=== PATIENT | male | born 1945 | race Caucasian/White ===

== ENCOUNTER 2018-06-26 07:51 | Day surgery (SDC) | payer MEDICARE ==
[~2018-06-26] VITALS: Ht 165.1 cm; Wt 111.6 kg
[~2018-06-26 07:51] MED LIST: ACET325; ALBU90OI61; ALPR.5 PO; B Complex1 EAC2 PO; CLOB.05TC; ESOM20 PO; FINA5 PO; FISH1000 PO; FURO20 PO; HYDACE5 PO; Hair, Skin & N1 EACH PO; IPRAOI; IPRAOI INH; LEVO750 PO; LOVA40 PO; Loperamide2 MG PO; METO25ER PO; OXYC5 PO; Prednisone20 MG PO; RANI150 PO; SACC250C; TAMS.4ER; TAMS.4ER PO; TRAM50 PO; [UNRECOGNIZED DRUG - REMARK]
== END 2018-06-26 10:11 | disposition home or self-care (01) ==
LOC: ORSCSDS 07:51
PROVIDERS: Student in an Organized Health Care Education/Training Program
PROC: 0DB68ZX Excision of Stomach, Via Natural or Artificial Opening Endoscopic, Diagnostic (ICD-10-PCS; principal; 2018-06-26 09:00)
PROC: 0DB48ZX Excision of Esophagogastric Junction, Via Natural or Artificial Opening Endoscopic, Diagnostic (ICD-10-PCS; principal; 2018-06-26 09:00)
DX: K21.9 Gastro-esophageal reflux disease without esophagitis (principal); I10 Essential (primary) hypertension; G47.33 Obstructive sleep apnea (adult) (pediatric); E78.5 Hyperlipidemia, unspecified; R73.03 Prediabetes; J45.909 Unspecified asthma, uncomplicated; K44.9 Diaphragmatic hernia without obstruction or gangrene; K29.70 Gastritis, unspecified, without bleeding; Z87.891 Personal history of nicotine dependence; E66.01 Morbid (severe) obesity due to excess calories; Z68.41 Body mass index [BMI] 40.0-44.9, adult; Z79.899 Other long term (current) drug therapy
CPT/HCPCS: 88305; 88342; J2250; J2704; J7120

== ENCOUNTER 2018-10-14 20:17 | Emergency (ER) | payer MEDICARE ==
[~2018-10-14] VITALS: Ht 170.2 cm; Wt 104.3 kg
[~2018-10-14 20:17] MED LIST changes: -RANI150 PO; +Zantac150 MG PO
[2018-10-14] MEDS ORDERED: IBUP600 PO (22:22)
[2018-10-14] MEDS ORDERED: CYCL10 PO (22:22)
[2018-10-14] MEDS ORDERED: LIDO700A20 TOP (22:22)
== END 2018-10-14 23:01 | disposition home or self-care (01) ==
LOC: ER 20:17
DX: G89.29 Other chronic pain (principal); M54.5 Low back pain; I10 Essential (primary) hypertension; E78.5 Hyperlipidemia, unspecified; Z79.899 Other long term (current) drug therapy; J44.9 Chronic obstructive pulmonary disease, unspecified; K21.9 Gastro-esophageal reflux disease without esophagitis; Z87.891 Personal history of nicotine dependence
CPT/HCPCS: 96372; 99283-25; J1100; J1885

== ENCOUNTER 2018-12-18 11:14 | Day surgery (SDC) | payer MEDICARE ==
[~2018-12-18] VITALS: Ht 165.1 cm; Wt 108.0 kg
[~2018-12-18 11:14] MED LIST changes: +CYCL10 PO; +IBUP600 PO; +LIDO700A20 TOP
[2018-12-18] MEDS ORDERED: LOSA50 PO (11:39)
[2018-12-18] MEDS ORDERED: Klor-Con 1010 MEQ PO (11:42)
[2018-12-18] MEDS ORDERED: BENZ100A PO (11:43)
[2018-12-18] MEDS ORDERED: Flonase 0.05% N16 GM (11:44)
[2018-12-18] MEDS ORDERED: ASTEPRO205.5 MCG/ INH (11:46)
[2018-12-18] MEDS ORDERED: OMEP20ER PO (11:54)
--- NOTE | 2018-12-18 13:10 | NUR ---
12/18/18 1310 Nicole Ahmadi PATIENT WHEN SITTING STATED HE FELT LIKE HIS PAIN MIGHT BE BETTER. WHEN PATIENT WAS READY TO AMBULATE TO THE CAR HE WAS HAVING GREAT DIFFICULTY DOING THIS AND STATED THE PAIN IS "STILL PRETTY BAD" IN HIS LOW BACK AND LEFT SIDE. WANTED TO WALK BUT THEN DUE TO HIS DIFFICULTY HE DECIDED HE NEEDED TRANSPORT CHAIR. HE WAS TAKEN OUT IN CHAIR TO THE CAR AND HE WAS ABLE TO TRANSFER WITH MINIMAL ASSISTANCE BUT IT DID APPEAR TO BE VERY UNCOMFORTABLE. PATIENT WAS ADVISED TO GO HOME AND TAKE OTC PAIN MEDS CAIT AND HE VERBALIZED UNDERSTANDING
== END 2018-12-18 13:06 | disposition home or self-care (01) ==
LOC: ORSCSDS 11:14
PROVIDERS: Orthopaedic Surgery
PROC: 3E0R33Z Introduction of Anti-inflammatory into Spinal Canal, Percutaneous Approach (ICD-10-PCS; principal; 2018-12-18 15:00)
DX: M54.16 Radiculopathy, lumbar region (principal); M48.00 Spinal stenosis, site unspecified; M54.5 Low back pain; R73.03 Prediabetes; I10 Essential (primary) hypertension; E78.5 Hyperlipidemia, unspecified; G47.33 Obstructive sleep apnea (adult) (pediatric); J45.909 Unspecified asthma, uncomplicated; E66.01 Morbid (severe) obesity due to excess calories; Z68.38 Body mass index [BMI] 38.0-38.9, adult; Z87.891 Personal history of nicotine dependence; Z79.899 Other long term (current) drug therapy
CPT/HCPCS: J1040

== ENCOUNTER → 2020-09-12 | Outpatient (CLI) | payer MEDICARE ==
[~2020-09-12] MED LIST changes: -ACET325; +ACET325 PO; -ALBU90OI61; +ALBU90OI61 INH; +ASPI81CH PO; +ASTEPRO205.5 MCG/ INH; +BENZ100A PO; +Flonase 0.05% N16 GM; -IPRAOI; +IPRATROPIUM INH; +Klor-Con 1010 MEQ PO; +LOSA50 PO; +MULVITA PO; +Norco 5-325 Ta1 EACH PO; +OMEP20ER PO; +ROSU5 PO; +SPIRIVA RESPIMAT4 G3 INH; +ZANAFLEX4 M3 PO
[2020-09-12 10:44] LABS: BASOPHILS ABSOLUTE AUTO 0.05 K/mm3 (0.00-0.23); BASOPHILS PERCENT AUTO 1 % (0-2); EOSINOPHILS ABSOLUTE AUTO 0.23 K/mm3 (0.00-0.68); EOSINOPHILS PERCENT AUTO 3 % (0-6); Hematocrit 42.9 % (37.0-53.0); Hemoglobin 14.1 g/dL (13.5-17.5); IMMATURE GRAN ABSOLUTE AUTO 0.03 K/mm3 (0.00-0.10); IMMATURE GRAN PERCENT AUTO 0 % (0-1); LYMPHOCYTES ABSOLUTE AUTO 1.81 K/mm3 (0.84-5.20); LYMPHOCYTES PERCENT AUTO 22 % (21-46); MONOCYTES ABSOLUTE AUTO 0.54 K/mm3 (0.16-1.47); MONOCYTES PERCENT AUTO 7 % (4-13); Mean Corpuscular HGB 29.4 pg (26.0-34.0); Mean Corpuscular HGB Conc 32.9 g/dL (31.5-36.5); Mean Corpuscular Volume 90 fL (80-100); Mean Platelet Volume 10.3 fL (9.1-12.4); NEUTROPHILS ABSOLUTE AUTO 5.53 K/mm3 (1.96-9.15); NEUTROPHILS PERCENT AUTO 68 % (41-73); Platelet Count 220 K/mm3 (150-400); RDW Coefficient Variation 13.7 % (11.7-14.2); RDW Standard Deviation 45.1 fL (35.1-46.3); Red Blood Cell Count 4.79 M/mm3 (4.30-5.90); White Blood Cell Count 8.19 K/mm3 (4.00-11.30)
[2020-09-12 11:01] LABS: Alanine Aminotransfer (ALT/SGP 21 U/L (12-78); Albumin, Blood 4.2 g/dL (3.4-5.0); Alk Phos 68 U/L (40-126); Anion Gap 10 mmol/L (6-16); Aspartate Aminotrans (AST/SGOT 13 U/L (12-37); Bilirubin, Total 0.5 mg/dL (0.1-1.0); Blood Urea Nitrogen 23 mg/dL (8-24); Bun/Creatinine Ratio 21.9 (12.0-20.0); CO2, Blood 29 mmol/L (21-32); Calcium, Blood 9.2 mg/dL (8.5-10.1); Chloride, Blood 101 mmol/L (98-108); Creatinine, Blood 1.05 mg/dL (0.60-1.20); Globulin, Blood 4.3 g/dL (2.2-4.0); Glomerular Filtration Rate >60 (60-); Glucose, Blood 110 mg/dL (70-99); Sodium, Blood 140 mmol/L (136-145); Thyroid Stimulating Hormone 1.995 uIU/mL (0.360-4.800); Total Protein, Blood 8.5 g/dL (6.4-8.2)
== END ==
LOC: LAB SHORT 10:35
PROVIDERS: Physician Assistant
DX: I25.10 Atherosclerotic heart disease of native coronary artery without angina pectoris (principal); R53.83 Other fatigue
CPT/HCPCS: 80053; 84443; 85025

== ENCOUNTER → 2021-06-15 | Outpatient (CLI) | payer MEDICARE | END | disposition home or self-care (01) | LOC: LAB SHORT 14:30 → LAB 14:30 | DX: R21 Rash and other nonspecific skin eruption (principal) | CPT/HCPCS: 87070; 87075; 87205 ==

== ENCOUNTER 2023-09-13 23:38 | Emergency (ER) | payer OTHER ==
[~2023-09-13] VITALS: Ht 165.1 cm; Wt 95.2 kg
[~2023-09-13 23:38] MED LIST changes: +AMLODIPINE BESY10 MG PO; +Crestor40 MG PO; +FUROSEMIDE20 MG PO; +LEVOCETIRIZINE D5 MG PO; +NEURONTIN300 MG PO; +OXAYDO5 M1 PO; -ROSU5 PO; +TORSE20 PO
[2023-09-13] MEDS ORDERED: Phentermine HCl15 MG PO (23:50)
[2023-09-13] MEDS ORDERED: METOPROLOL SUCC25 MG PO (23:50)
[2023-09-14 00:40] LABS: BASOPHILS ABSOLUTE AUTO 0.04 K/mm3 (0.00-0.23); BASOPHILS PERCENT AUTO 0 % (0-2); EOSINOPHILS ABSOLUTE AUTO 0.23 K/mm3 (0.00-0.68); EOSINOPHILS PERCENT AUTO 2 % (0-6); Hematocrit 38.7 % (37.0-53.0); Hemoglobin 12.8 g/dL (13.5-17.5); IMMATURE GRAN ABSOLUTE AUTO 0.04 K/mm3 (0.00-0.10); IMMATURE GRAN PERCENT AUTO 0 % (0-1); LYMPHOCYTES PERCENT AUTO 24 % (21-46); MONOCYTES PERCENT AUTO 9 % (4-13); Mean Corpuscular HGB 28.6 pg (26.0-34.0); Mean Corpuscular HGB Conc 33.1 g/dL (31.5-36.5); Mean Corpuscular Volume 87 fL (80-100); Mean Platelet Volume 10.1 fL (9.1-12.4); NEUTROPHILS ABSOLUTE AUTO 6.62 K/mm3 (1.96-9.15); NEUTROPHILS PERCENT AUTO 65 % (41-73); Platelet Count 198 K/mm3 (150-400); RDW Coefficient Variation 15.8 % (11.7-14.2); RDW Standard Deviation 49.5 fL (35.1-46.3); Red Blood Cell Count 4.47 M/mm3 (4.30-5.90); White Blood Cell Count 10.23 K/mm3 (4.00-11.30)
[2023-09-14 00:59] LABS: Albumin, Blood 3.7 g/dL (3.4-5.0); Bilirubin, Total 0.4 mg/dL (0.1-1.0); Bun/Creatinine Ratio 24.3 (12.0-20.0); Calcium, Blood 8.4 mg/dL (8.5-10.1); Creatinine, Blood 1.03 mg/dL (0.60-1.20); Globulin, Blood 3.6 g/dL (2.2-4.0); Potassium, Blood 3.9 mmol/L (3.5-5.5); Total Protein, Blood 7.3 g/dL (6.4-8.2)
[2023-09-14] MEDS ORDERED: Mag Hydrox/AL Hydrox/Simeth 30 ML UDC PO ONE (03:00)
[2023-09-14] MEDS ORDERED: Lidocaine 2% Viscous Soln 15 ML UDC PO ONE (03:00)
[2023-09-14 04:30] VITALS: BP 126/63
== END 2023-09-14 04:40 | disposition home or self-care (01) ==
LOC: ER 23:38
PROVIDERS: Emergency Medicine
DX: K21.9 Gastro-esophageal reflux disease without esophagitis (principal); Z68.34 Body mass index [BMI] 34.0-34.9, adult; E86.0 Dehydration; Z79.899 Other long term (current) drug therapy; Z79.82 Long term (current) use of aspirin; G47.33 Obstructive sleep apnea (adult) (pediatric); I10 Essential (primary) hypertension; E78.5 Hyperlipidemia, unspecified; J44.9 Chronic obstructive pulmonary disease, unspecified; Z87.891 Personal history of nicotine dependence
CPT/HCPCS: 71046; 80053; 83605; 83690; 84484; 85025; 85379; 93005; 93010; 99284-25; A9270

== ENCOUNTER 2024-02-18 12:53 | Emergency (ER) | payer OTHER ==
[~2024-02-18] VITALS: Ht 165.1 cm; Wt 104.8 kg
[~2024-02-18 12:53] MED LIST changes: +METOPROLOL SUCC25 MG PO; +Phentermine HCl15 MG PO
[2024-02-18 13:29] VITALS: BP 118/48
== END 2024-02-18 16:02 | disposition home or self-care (01) ==
LOC: ER 12:53
DX: K40.20 Bilateral inguinal hernia, without obstruction or gangrene, not specified as recurrent (principal); N50.82 Scrotal pain; I10 Essential (primary) hypertension; E78.5 Hyperlipidemia, unspecified; J44.9 Chronic obstructive pulmonary disease, unspecified; K21.9 Gastro-esophageal reflux disease without esophagitis; G47.33 Obstructive sleep apnea (adult) (pediatric); Z87.891 Personal history of nicotine dependence; Z79.51 Long term (current) use of inhaled steroids; Z79.899 Other long term (current) drug therapy
CPT/HCPCS: 76857; 76870; 99283-25

== ENCOUNTER 2024-04-01 07:46 | Observation (INO) | payer OTHER ==
[~2024-04-01] VITALS: Ht 165.1 cm; Wt 108.0 kg
[2024-04-01] VITALS (14 sets, daily range): BP systolic 118–170; BP diastolic 49–90
[~2024-04-01 07:46] MED LIST changes: +AMLO10 PO; +ATROVENT HFA12.9 GM INH; +CeFAZolin Sodium 2,000 MG in NS 100 ML IV SCH; +Lactated Ringer's 1,000 ML IV SCH; +SPIR25 PO
[2024-04-01] MEDS ORDERED: Bupivacaine 0.5% HCl 5 MG/ML 30MLVIAL ONE (08:37)
--- NOTE | 2024-04-01 08:47 | NUR ---
Ambulatory in Day Surgery WITH PERSONAL CANE. GAIT UNSTEADY. USES WC FOR LONGER DISTANCES. History, Chart, Medications and Allergies reviewed before start of procedure. Lungs clear T/O to Auscultation. Patient confirms NPO status and agrees with scheduled surgery. Pre-Op teaching done. Pt verbalizes understanding. Patient States Post-Procedure ride home has been arranged. PT BELONGINGS AND PERSONAL CANE PLACED UNDERNEATH GURNEY FOR SAFEKEEPING. PT GLASSES TAKEN TO PACU FOR SAFEKEEPING.
--- NOTE | 2024-04-01 08:54 | NUR ---
PT BOTTOM DENTURES TAKEN TO PACU FOR SAFEKEEPING. PT STATES UPPER DENTURES ARE IN VERY TIGHT. ANESTHESIA NOTIFIED.
[2024-04-01] MEDS ORDERED: FentaNYL Citrate 50 MCG/ML 2 ML Injection ONE (08:56)
[2024-04-01] MEDS ORDERED: Etomidate 2MG / ML 10ML Vial ONE (09:00)
[2024-04-01] MEDS ORDERED: Dexamethasone Sod Phos 10 MG/ML 1ML VIAL ONE (09:01)
[2024-04-01] MEDS ORDERED: Ondansetron HCl 2 MG / ML 2ML Vial ONE (09:01)
[2024-04-01] MEDS ORDERED: Phenylephrine HCl 100 MCG/ML-NS 10MLSYR (1MG/10ML) ONE (10:42)
[2024-04-01] MEDS ORDERED: Sugammadex Sodium 200 MG/2ML SDV (100 MG/ML) ONE (11:06)
[2024-04-01] MEDS ORDERED: HYDROcodone 5-APAP 325 TAB PO PRN (11:40)
--- NOTE | 2024-04-01 13:21 | NUR ---
"Spiritual Care | DS Rapid Response Pt. is being attended to by the RR Team when I go find the family in the waiting area. Sit with Pts. spouse who displays evidence of being visibly shaken. Facilitate life review and listen with empathy and a calming presence. Pts. daughter who is also a staff member at this hospital arrives and sits with the Spouse. Pastoral care and support are given, before this visiting housekeeper departed I had the nurse customer success manager update the family on the care plan for the Pt. Spouse verbalized gratitude for the spiritual care visit."
--- NOTE | 2024-04-01 13:25 | NUR ---
1200 RECEIVED REPORT. PT APPEARS IN NO DISTRESS. VSS. ORIENTED TO SELF AND BUT DOESN NOT KNOW WHERE HE IS OR WHAT HAS BEEN DONE TO HIM. DOES NOT KNOW DATE OR WHO PRESIDENT IS. ABLE TO FOLLOW DIRECTIOS BUT IS REPETITIVE IN QUESTIONS ABOUT HIS WHERE ABOUTS. HE IS UNABLE TO TELL ME IF HE HAS PAIN. HE IS UNABLE TO CHOSE A DRINK FROM A LIST STATING "I DON'T KNOW" 1210 M. BUTT MOBILE HEAVY EQUIPMENT MECHANIC AT BS ASSESSING PT. [address] W/NSR. PT PUT ON VIA NC. AT BS. EKG ORDERED 1215 PT CONTINUES TO ASK REPETITVE QUESTIONS AND IS NOW SOB W/LABORED BREATHING. LUNGS CTA X 4 BUT DIM THROUGHOUT RIGHT INGUINAL DRESSING CDI. LEFT INGUINAL DRESSING W/ VERY SCANT SERROSANGUANOUS DRAINAGE COMING FROM MEDIAL PART OF DRESSING. PT CONTINUES TO HAVE INCREASED SOB AND LABORED BREATHING. RIGHT ARM W/INCREASING TREMOR. PT'S STATES THAT HE SOMETIMES HAS THIS. PT TALKING ONE SECOND THAN SLUMPED OVER. STAFF ALERTED TO PT'S DECLINE. PT'S HOB DOWN AND STERNAL RUB ADMINSTERED W/ IMMEDIATE EYE OPENING. PT MUTTERING. INSTRUCTIONAL DESIGN TECHNOLOGIST CALLED 1220 INSTRUCTIONAL DESIGN TECHNOLOGIST AT BS. DR WALL AT BS. EKG DONE. PT TO BE ADMITTED TO DR. HOPSON IN ROOM PCU 18. PT CONTINUES TO HAVE SOB AND TREMORING R SIDE GREATER THAN LEFT 1245 PT CONT ON MONITOR BUT IS MORE CALM NOW. CONTIUES TO HAVE OCCASIONAL SLIGHT TREMOR IN RIGHT ARM. SOB MUCH IMPROVED. 1300 PT TRANSFERRED ON VIA DANIEL TO PCU 18 SEE INSTRUCTIONAL DESIGN TECHNOLOGIST REPORT AND MD DICTATION
[2024-04-01] MEDS ORDERED: FLU VACC TS2024-25(6MOS UP)/PF 45 MCG/0.5 ML SYRINGE IM SCH (13:55)
--- NOTE | 2024-04-01 14:29 | NUR ---
pt went for head CT and chest xray
[2024-04-01 15:21] LABS: Base Excess Venous -0.7 mmol/L; Bicarbonate Venous 23.7 mmol/L (24.0-30.0); PCO2 Venous 37.3 mmHg (38-42); pH Blood Venous 7.42 (7.34-7.37)
[2024-04-01 15:24] LABS: BASOPHILS ABSOLUTE AUTO 0.02 K/mm3 (0.00-0.23); BASOPHILS PERCENT AUTO 0 % (0-2); EOSINOPHILS PERCENT AUTO 0 % (0-6); Hematocrit 34.5 % (37.0-53.0); Hemoglobin 11.6 g/dL (13.5-17.5); IMMATURE GRAN ABSOLUTE AUTO 0.04 K/mm3 (0.00-0.10); IMMATURE GRAN PERCENT AUTO 0 % (0-1); LYMPHOCYTES ABSOLUTE AUTO 0.53 K/mm3 (0.84-5.20); LYMPHOCYTES PERCENT AUTO 4 % (21-46); MONOCYTES ABSOLUTE AUTO 0.48 K/mm3 (0.16-1.47); MONOCYTES PERCENT AUTO 4 % (4-13); Mean Corpuscular HGB 29.1 pg (26.0-34.0); Mean Corpuscular HGB Conc 33.6 g/dL (31.5-36.5); Mean Corpuscular Volume 87 fL (80-100); Mean Platelet Volume 10.1 fL (9.1-12.4); NEUTROPHILS ABSOLUTE AUTO 12.16 K/mm3 (1.96-9.15); NEUTROPHILS PERCENT AUTO 92 % (41-73); Platelet Count 172 K/mm3 (150-400); RDW Coefficient Variation 14.6 % (11.7-14.2); RDW Standard Deviation 46.4 fL (35.1-46.3); Red Blood Cell Count 3.99 M/mm3 (4.30-5.90); White Blood Cell Count 13.23 K/mm3 (4.00-11.30)
[2024-04-01 15:49] LABS: Prothrombin Time Results 10.7 Sec (9.7-11.5)
[2024-04-01 16:06] LABS: Albumin, Blood 3.3 g/dL (3.4-5.0); Bilirubin, Total 0.4 mg/dL (0.1-1.0); Bun/Creatinine Ratio 17.4 (12.0-20.0); Calcium, Blood 8.3 mg/dL (8.5-10.1); Creatinine, Blood 1.09 mg/dL (0.60-1.20); Globulin, Blood 3.4 g/dL (2.2-4.0); Potassium, Blood 4.2 mmol/L (3.5-5.5); Total Protein, Blood 6.7 g/dL (6.4-8.2)
[2024-04-01] MEDS ORDERED: ATROVENT HFA12.9 GM INH (16:09)
[2024-04-01] MEDS ORDERED: MIRALAX17 GM PO (16:10)
[2024-04-01] MEDS ORDERED: TIOT18 INH (16:11)
[2024-04-01] MEDS ORDERED: TIZA4 PO (16:12)
[2024-04-01] MEDS ORDERED: SPIR25 PO (16:17)
[2024-04-01] MEDS ORDERED: Insulin Regular 100 UNIT/ML 10ML Vial SC SCH (16:30)
[2024-04-01] MEDS ORDERED: Polyethylene Glycol 3350 17 gm PO PRN (16:40)
[2024-04-01] MEDS ORDERED: Aspirin 325 MG Tab PO ONE (17:00)
[2024-04-01] MEDS ORDERED: Tiotropium Bromide 2.5 MCG/ACT MIST INHAL (10 ACT/4 GM) INH SCH (17:05)
--- NOTE | 2024-04-01 18:25 | NUR ---
Family Support. Met with Spouse and daughter in the hallway. With theraputic listening and a calming presence lent support to the family. Family shares about the high anxiety of the the Pt. Our visit opened the door for follow up with the Pt. in the morning. Family verbalized greatitude for the spiritual care support.
--- NOTE | 2024-04-01 18:33 | NUR ---
The pt this afternoon around 4 pm was alert, oriented, calm, and mentating well without any anxiety nor confusion nor forgetfulness. After 5:30 pm he c/o ongoing pain, worsened when he walked into the bathroom for the second time to void. Stated it was 8/10. We encouraged him to get into the recliner for comfort and for ease of movement, eddie since he is adamant about ambulating to bathroom to sit on toilet to void. He was tolerating this activity fairly well before. However, just after 5:30 pm while sitting on the side of the bed, just after using the toilet, he began to hyperventilate, stating his pain was almost 9/10 (He had been given [place] but it had not yet given him relief). He was clearly anxious. He was alert, oriented, v/s were stable, but he continued to hyperventilate despite staff reassurance and staying beside him for several minutes, and he began to also shake his arms, but this was also intermittent as it would stop momentarily when he would have a purposeful movement to hold the walker, scratch his face. He was encouraged to slow down his breathing to help decrease his pain as well, and he verbalized assent, but did not seem able to shake his anxiety. He was able to follow directions and after about 10-15 minutes was able to transfer using the walker to the bedside recliner. NSR throughout the entire time by telemetry, and spo2 remained greater than 92%. At present he is cheerful, eating dinner, smiling, making jokes and his and daughter are at the bedside. His and daughter were present during the episode and state that they have seen the pt have these "anxiety/panic" attacks before, and their experience is that the pt has them when he is in pain because they state that his pain tolerance is "zero".
[2024-04-01] MEDS ORDERED: Rosuvastatin Calcium 10 MG Tab PO SCH (21:00)
[2024-04-01] MEDS ORDERED: Gabapentin 300 MG Cap PO SCH (21:00)
[2024-04-01] MEDS ORDERED: Acetaminophen 500 MG Tab PO PRN (21:20)
[2024-04-01] MEDS ORDERED: Ketorolac Tromethamine 15mg Vial IV PRN (21:35)
[2024-04-01] MEDS ORDERED: Omeprazole 20 MG CapCR PO SCH (22:25)
[2024-04-02 00:11] VITALS: BP 113/58
[2024-04-02 04:00] LABS: BASOPHILS ABSOLUTE AUTO 0.01 K/mm3 (0.00-0.23); BASOPHILS PERCENT AUTO 0 % (0-2); EOSINOPHILS PERCENT AUTO 0 % (0-6); Hemoglobin 10.9 g/dL (13.5-17.5); IMMATURE GRAN ABSOLUTE AUTO 0.12 K/mm3 (0.00-0.10); IMMATURE GRAN PERCENT AUTO 1 % (0-1); LYMPHOCYTES ABSOLUTE AUTO 1.25 K/mm3 (0.84-5.20); LYMPHOCYTES PERCENT AUTO 6 % (21-46); MONOCYTES ABSOLUTE AUTO 1.65 K/mm3 (0.16-1.47); MONOCYTES PERCENT AUTO 8 % (4-13); Mean Corpuscular HGB 28.6 pg (26.0-34.0); Mean Corpuscular Volume 87 fL (80-100); Mean Platelet Volume 10.4 fL (9.1-12.4); NEUTROPHILS ABSOLUTE AUTO 16.83 K/mm3 (1.96-9.15); NEUTROPHILS PERCENT AUTO 85 % (41-73); Platelet Count 208 K/mm3 (150-400); RDW Coefficient Variation 14.8 % (11.7-14.2); RDW Standard Deviation 47.1 fL (35.1-46.3); Red Blood Cell Count 3.81 M/mm3 (4.30-5.90); White Blood Cell Count 19.86 K/mm3 (4.00-11.30)
[2024-04-02 04:19] VITALS: BP 100/49
[2024-04-02 04:55] LABS: Anion Gap 11 mmol/L (3-11); Blood Urea Nitrogen 29 mg/dL (8-24); Bun/Creatinine Ratio 22.8 (12.0-20.0); CHOL/HDL RATIO 2.8; CO2, Blood 23 mmol/L (21-32); Calcium, Blood 8.5 mg/dL (8.5-10.1); Chloride, Blood 108 mmol/L (98-108); Cholesterol 142 mg/dL (50-200); Creatinine, Blood 1.27 mg/dL (0.60-1.20); Glomerular Filtration Rate 57 (60-); Glucose, Blood 119 mg/dL (70-99); HDL Cholesterol 50 mg/dL (>39); LDL/HDL RATIO 1.3; Low Density Lipoprotein Chol 64 mg/dL (0-110); Potassium, Blood 4.4 mmol/L (3.5-5.5); Sodium, Blood 138 mmol/L (136-145); Triglycerides 140 mg/dL (30-160); Very Low Density Lipoprot Chol 28 mg/dL (6-32)
[2024-04-02] MEDS ORDERED: Omeprazole 20 MG CapCR PO SCH (06:00)
[2024-04-02 07:35] VITALS: BP 114/59
--- NOTE | 2024-04-02 07:55 | NUR ---
SHIFT SUMMARY: PT IS A&OX3-4, FORGETFUL AT TIMES, BUT COOPERATIVE WITH CARES. VSS ON RA, CPAP ON WHILE ASLEEP. C/O PAIN IN HIS BILAT GROIN INCISION SITES, MEDICATED PER EMAR. DRESSINGS WITH SMALL AMOUNTS OF SANGUINEOUS DRAINAGE. GROIN AREAS ARE ECCHYMOTIC, SOFT AND TENDER TO PALPATE. TOLERATING A HEART HEALTHY DIET. X1 ASSIST TO BR WITH FWW AND GB. NO BM THIS SHIFT, PASSING FLATUS. BED IN LOWEST POSITION, CALL LIGHT WITHIN REACH. BED ALARM SET FOR PT'S SAFETY.
[2024-04-02] MEDS ORDERED: Losartan Potassium 50 MG Tab PO SCH (09:00)
[2024-04-02] MEDS ORDERED: Tamsulosin HCl 0.4 MG Cap PO SCH (09:00)
[2024-04-02] MEDS ORDERED: Spironolactone 25 MG Tab PO SCH (09:00)
[2024-04-02] MEDS ORDERED: Metoprolol Succinate 25 MG TABCR PO SCH (09:00)
[2024-04-02] MEDS ORDERED: Potassium Chloride 10 Meq Tablet SA PO SCH (09:00)
[2024-04-02] MEDS ORDERED: Torsemide 20 MG TAB PO SCH (09:00)
[2024-04-02] MEDS ORDERED: Finasteride 5 MG Tab PO SCH (09:00)
[2024-04-02] MEDS ORDERED: AmLODIPine Besylate 5 MG Tab PO SCH (09:00)
[2024-04-02] MEDS ORDERED: Fluticasone 0.05% Nasal Spray SCH (09:00)
[2024-04-02 11:33] VITALS: BP 105/58
--- NOTE | 2024-04-02 13:28 | NUR ---
Dr. Basilio is here rounding on the pt at this time.
--- NOTE | 2024-04-02 13:51 | NUR ---
Tolerating walking to the bathroom to void well; some shortness of breath with activity. V/s are stable.
--- NOTE | 2024-04-02 17:36 | NUR ---
1600 Discharge instructions reviewed with the patient and his , Vesta. Questions answered. Rx given for Zullinger; pt to fill it at [facility]. Taken out in wheelchair with accompanying him.
--- NOTE | 2024-04-02 18:14 | NUR ---
Pt. is awake in bed when he welcomed my visit. Spouse is at bedside. Pt. is pleasant, but this dimpling machine operator had been notified by the staff that he had been struggling with anxiety. Spent some significant time facilitating a life review and establishing rapport. Prayed for the Pt. and the family both verbalized gratitude for the spiritual care visit. Pt. displayed evidence of less anxiety.
[2024-04-02] MEDS ORDERED: Polyethylene Glycol 3350 17 gm PO SCH (21:00)
[2024-04-03] MEDS ORDERED: Aspirin 81 MG Chew PO SCH (09:00)
== END 2024-04-02 16:29 | disposition home or self-care (01) ==
LOC: ORSCMMR 07:46 → ORD 09:00 → ORSCMMR 09:00 → PCU 13:24
PROVIDERS: Surgery; ADMIT Family Medicine
PROC: 0YUA0JZ Supplement Bilateral Inguinal Region with Synthetic Substitute, Open Approach (ICD-10-PCS; principal; 2024-04-01 09:00)
DX: K40.00 Bilateral inguinal hernia, with obstruction, without gangrene, not specified as recurrent (principal); I25.10 Atherosclerotic heart disease of native coronary artery without angina pectoris; E11.9 Type 2 diabetes mellitus without complications; I10 Essential (primary) hypertension; G47.33 Obstructive sleep apnea (adult) (pediatric); J44.9 Chronic obstructive pulmonary disease, unspecified; E78.5 Hyperlipidemia, unspecified; K21.9 Gastro-esophageal reflux disease without esophagitis; N40.0 Benign prostatic hyperplasia without lower urinary tract symptoms; R53.1 Weakness; D64.9 Anemia, unspecified; E66.9 Obesity, unspecified; Z68.38 Body mass index [BMI] 38.0-38.9, adult; Z87.891 Personal history of nicotine dependence; Z79.82 Long term (current) use of aspirin; Z79.899 Other long term (current) drug therapy; Z88.5 Allergy status to narcotic agent; Z88.8 Allergy status to other drugs, medicaments and biological substances; Z59.89 Other problems related to housing and economic circumstances
CPT/HCPCS: 36415; 70450; 70496; 70498; 70551; 71045; 80048; 80053; 80061; 82803; 82947; 83880; 85025; 85610; 85730; 93005; 93010; 93306; 94640; 94664; 94762; 96374; 97161; 97530; A9270; C1781; G0378; J0690; J1100; J1885; J2371; J2405; J3010; J7120; Q9967

== ENCOUNTER 2024-06-14 10:33 | Emergency (ER) | payer OTHER ==
[~2024-06-14] VITALS: Ht 165.1 cm; Wt 104.3 kg
[~2024-06-14 10:33] MED LIST changes: -CeFAZolin Sodium 2,000 MG in NS 100 ML IV SCH; -Lactated Ringer's 1,000 ML IV SCH; +MIRALAX17 GM PO; +TIOT18 INH; +TIZA4 PO
[2024-06-14 12:48] LABS: Source, Urine Clean Catch
[2024-06-14 12:54] LABS: BASOPHILS ABSOLUTE AUTO 0.04 K/mm3 (0.00-0.23); BASOPHILS PERCENT AUTO 0 % (0-2); EOSINOPHILS ABSOLUTE AUTO 0.07 K/mm3 (0.00-0.68); EOSINOPHILS PERCENT AUTO 1 % (0-6); Hematocrit 32.2 % (37.0-53.0); Hemoglobin 10.2 g/dL (13.5-17.5); IMMATURE GRAN ABSOLUTE AUTO 0.04 K/mm3 (0.00-0.10); IMMATURE GRAN PERCENT AUTO 0 % (0-1); LYMPHOCYTES ABSOLUTE AUTO 1.04 K/mm3 (0.84-5.20); LYMPHOCYTES PERCENT AUTO 7 % (21-46); MONOCYTES ABSOLUTE AUTO 1.08 K/mm3 (0.16-1.47); MONOCYTES PERCENT AUTO 8 % (4-13); Mean Corpuscular HGB 26.2 pg (26.0-34.0); Mean Corpuscular HGB Conc 31.7 g/dL (31.5-36.5); Mean Corpuscular Volume 83 fL (80-100); Mean Platelet Volume 10.4 fL (9.1-12.4); NEUTROPHILS PERCENT AUTO 84 % (41-73); Platelet Count 251 K/mm3 (150-400); RDW Standard Deviation 45.1 fL (35.1-46.3); Red Blood Cell Count 3.89 M/mm3 (4.30-5.90); White Blood Cell Count 14.37 K/mm3 (4.00-11.30)
[2024-06-14 12:55] LABS: Appearance, Urine Clear (Clear); Bilirubin, Urine Neg (Neg); Blood, Urine Neg (Neg); Color, Urine Yellow (P-Yellow); Glucose Qualitative, Urine Neg (Neg); Ketones, Urine Neg (Neg); Leukocyte Esterase, Urine Neg (Neg); Nitrite, Urine Neg (Neg); Protein, Urine Neg (Neg); Specific Gravity, Urine 1.015 (1.003-1.022); Urobilinogen, Urine NORM (Normal)
[2024-06-14 13:10] LABS: Albumin, Blood 4.1 g/dL (3.4-5.0); Albumin/Globulin Ratio 1.2 (0.8-1.8); Bilirubin, Total 0.8 mg/dL (0.1-1.0); Bun/Creatinine Ratio 24.8 (12.0-20.0); Calcium, Blood 8.5 mg/dL (8.5-10.1); Creatinine, Blood 1.21 mg/dL (0.60-1.20); Globulin, Blood 3.5 g/dL (2.2-4.0); Magnesium, Blood 2.3 mg/dL (1.6-2.4); Total Protein, Blood 7.6 g/dL (6.4-8.2)
[2024-06-14 14:35] VITALS: BP 116/55
[2024-06-14] MEDS ORDERED: MIRALAX17 GM PO (14:39)
[2024-06-14] MEDS ORDERED: Milk 150ML/Molasses 150ML (300ML Total) PR ONE (14:40)
[2024-06-14] MEDS ORDERED: Lactulose 20 GM/30 ML UDC PO ONE (14:40)
== END 2024-06-14 17:25 | disposition home or self-care (01) ==
LOC: ER 10:33
PROVIDERS: Emergency Medicine
DX: K59.00 Constipation, unspecified (principal); N40.1 Benign prostatic hyperplasia with lower urinary tract symptoms; R33.8 Other retention of urine; G47.33 Obstructive sleep apnea (adult) (pediatric); I10 Essential (primary) hypertension; E78.5 Hyperlipidemia, unspecified; J44.9 Chronic obstructive pulmonary disease, unspecified; K21.9 Gastro-esophageal reflux disease without esophagitis; Z87.891 Personal history of nicotine dependence; Z79.82 Long term (current) use of aspirin; Z79.899 Other long term (current) drug therapy
CPT/HCPCS: 51702; 74018; 74177; 80053; 81003; 83690; 83735; 85025; 99284-25; A9270; Q9967

== ENCOUNTER 2024-06-18 10:40 | Emergency (ER) | payer OTHER ==
[~2024-06-18] VITALS: Ht 165.1 cm; Wt 106.1 kg
[2024-06-18] MEDS ORDERED: Morphine Sulfate 4 MG/1 ML Injection IV ONE (12:25)
[2024-06-18] MEDS ORDERED: Lidocaine 2% Jelly Uro-Jet TOP ONE (12:25)
[2024-06-18 13:36] LABS: BASOPHILS ABSOLUTE AUTO 0.04 K/mm3 (0.00-0.23); BASOPHILS PERCENT AUTO 0 % (0-2); EOSINOPHILS ABSOLUTE AUTO 0.34 K/mm3 (0.00-0.68); EOSINOPHILS PERCENT AUTO 3 % (0-6); Hematocrit 30.4 % (37.0-53.0); Hemoglobin 9.5 g/dL (13.5-17.5); IMMATURE GRAN ABSOLUTE AUTO 0.03 K/mm3 (0.00-0.10); IMMATURE GRAN PERCENT AUTO 0 % (0-1); LYMPHOCYTES ABSOLUTE AUTO 1.51 K/mm3 (0.84-5.20); LYMPHOCYTES PERCENT AUTO 14 % (21-46); MONOCYTES ABSOLUTE AUTO 1.08 K/mm3 (0.16-1.47); MONOCYTES PERCENT AUTO 10 % (4-13); Mean Corpuscular HGB Conc 31.3 g/dL (31.5-36.5); Mean Corpuscular Volume 83 fL (80-100); Mean Platelet Volume 10.9 fL (9.1-12.4); NEUTROPHILS ABSOLUTE AUTO 7.56 K/mm3 (1.96-9.15); NEUTROPHILS PERCENT AUTO 72 % (41-73); Platelet Count 241 K/mm3 (150-400); RDW Coefficient Variation 15.1 % (11.7-14.2); RDW Standard Deviation 46.3 fL (35.1-46.3); Red Blood Cell Count 3.65 M/mm3 (4.30-5.90); White Blood Cell Count 10.56 K/mm3 (4.00-11.30)
[2024-06-18 13:48] LABS: Source, Urine Foley catheter
[2024-06-18 13:59] LABS: Albumin, Blood 3.6 g/dL (3.4-5.0); Bilirubin, Total 0.3 mg/dL (0.1-1.0); Bun/Creatinine Ratio 22.9 (12.0-20.0); Calcium, Blood 8.3 mg/dL (8.5-10.1); Creatinine, Blood 1.05 mg/dL (0.60-1.20); Globulin, Blood 3.6 g/dL (2.2-4.0); Magnesium, Blood 2.4 mg/dL (1.6-2.4); Potassium, Blood 4.2 mmol/L (3.5-5.5); Total Protein, Blood 7.2 g/dL (6.4-8.2)
[2024-06-18 14:10] LABS: Appearance, Urine Cloudy (Clear); Bilirubin, Urine Neg (Neg); Blood, Urine 5+ (Neg); Color, Urine Yellow (P-Yellow); Glucose Qualitative, Urine Neg (Neg); Ketones, Urine Neg (Neg); Leukocyte Esterase, Urine 2+ (Neg); Nitrite, Urine Neg (Neg); Protein, Urine 2+ (Neg); Urobilinogen, Urine NORM (Normal); pH, Urine 6.5 (5.0-8.0)
[2024-06-18 14:30] VITALS: BP 105/55
[2024-06-18 14:31] LABS: Bacteria Many /hpf; Red Blood Cells, Urine TNTC /hpf (0-2); Squamous Epithelial Cells Not Seen /hpf (Few)
[2024-06-18] MEDS ORDERED: Cephalexin Monohydrate 500 MG Cap PO ONE (14:40)
[2024-06-18] MEDS ORDERED: Pyridium100 MG PO (14:41)
[2024-06-18] MEDS ORDERED: CEPH500 PO (14:41)
== END 2024-06-18 15:10 | disposition home or self-care (01) ==
LOC: ER 10:40
PROVIDERS: Emergency Medicine
DX: T83.091A Other mechanical complication of indwelling urethral catheter, initial encounter (principal); N39.0 Urinary tract infection, site not specified; R31.9 Hematuria, unspecified; N32.89 Other specified disorders of bladder; G47.33 Obstructive sleep apnea (adult) (pediatric); E78.5 Hyperlipidemia, unspecified; J44.9 Chronic obstructive pulmonary disease, unspecified; K21.9 Gastro-esophageal reflux disease without esophagitis; Z87.891 Personal history of nicotine dependence; Z79.899 Other long term (current) drug therapy; Z79.51 Long term (current) use of inhaled steroids; Z79.82 Long term (current) use of aspirin
CPT/HCPCS: 74177; 80053; 81001; 83690; 83735; 85025; 96374-59; 99284-25; A9270; J2270; Q9967

== ENCOUNTER 2024-07-11 16:57 | Emergency (ER) | payer OTHER ==
[~2024-07-11] VITALS: Ht 165.1 cm; Wt 104.8 kg
[~2024-07-11 16:57] MED LIST changes: +CEPH500 PO; +Pyridium100 MG PO
[2024-07-11] MEDS ORDERED: Lidocaine 2% Viscous Soln 15 ML UDC PO ONE (17:10)
[2024-07-11] MEDS ORDERED: Mag Hydrox/AL Hydrox/Simeth 30 ML UDC PO ONE (17:10)
[2024-07-11] MEDS ORDERED: Diazepam 5 MG / ML 2ML SYR IV ONE (17:10)
[2024-07-11 17:27] LABS: BASOPHILS ABSOLUTE AUTO 0.05 K/mm3 (0.00-0.23); BASOPHILS PERCENT AUTO 1 % (0-2); EOSINOPHILS PERCENT AUTO 5 % (0-6); Hematocrit 25.3 % (37.0-53.0); Hemoglobin 7.7 g/dL (13.5-17.5); IMMATURE GRAN ABSOLUTE AUTO 0.02 K/mm3 (0.00-0.10); IMMATURE GRAN PERCENT AUTO 0 % (0-1); LYMPHOCYTES ABSOLUTE AUTO 1.96 K/mm3 (0.84-5.20); LYMPHOCYTES PERCENT AUTO 24 % (21-46); MONOCYTES PERCENT AUTO 10 % (4-13); Mean Corpuscular HGB 24.9 pg (26.0-34.0); Mean Corpuscular HGB Conc 30.4 g/dL (31.5-36.5); Mean Corpuscular Volume 82 fL (80-100); Mean Platelet Volume 10.5 fL (9.1-12.4); NEUTROPHILS ABSOLUTE AUTO 5.01 K/mm3 (1.96-9.15); NEUTROPHILS PERCENT AUTO 61 % (41-73); Platelet Count 180 K/mm3 (150-400); RDW Coefficient Variation 16.1 % (11.7-14.2); RDW Standard Deviation 47.9 fL (35.1-46.3); Red Blood Cell Count 3.09 M/mm3 (4.30-5.90); White Blood Cell Count 8.24 K/mm3 (4.00-11.30)
[2024-07-11 17:43] LABS: Albumin, Blood 3.5 g/dL (3.4-5.0); Albumin/Globulin Ratio 1.1 (0.8-1.8); Bilirubin, Total 0.3 mg/dL (0.1-1.0); Bun/Creatinine Ratio 24.1 (12.0-20.0); Calcium, Blood 8.1 mg/dL (8.5-10.1); Creatinine, Blood 1.12 mg/dL (0.60-1.20); Globulin, Blood 3.2 g/dL (2.2-4.0); Magnesium, Blood 2.4 mg/dL (1.6-2.4); Potassium, Blood 4.4 mmol/L (3.5-5.5); Total Protein, Blood 6.7 g/dL (6.4-8.2)
[2024-07-11 20:30] VITALS: BP 114/48
== END 2024-07-11 20:50 | disposition home or self-care (01) ==
LOC: ER 16:57
PROVIDERS: Student in an Organized Health Care Education/Training Program
DX: R07.2 Precordial pain (principal); D64.9 Anemia, unspecified; J44.9 Chronic obstructive pulmonary disease, unspecified; K21.9 Gastro-esophageal reflux disease without esophagitis; G47.33 Obstructive sleep apnea (adult) (pediatric); E78.5 Hyperlipidemia, unspecified; Z87.891 Personal history of nicotine dependence; Z79.899 Other long term (current) drug therapy; Z79.82 Long term (current) use of aspirin; Z79.51 Long term (current) use of inhaled steroids
CPT/HCPCS: 71045; 80053; 83690; 83735; 83880; 84484; 85025; 93005; 93010; 96374; 99285-25; A9270; J3360